=== PATIENT | female | born 1980 | race Caucasian/White ===

== ENCOUNTER 2017-10-08 11:27 | Emergency (ER) | payer SELFPAY ==
[2017-10-08 11:29] VITALS: BP 146/95; PULSE 116; RESP 18; TEMP 36.8; O2SAT 94; BMI 43.4
[2017-10-08 11:35] VITALS: BP 133/96; PULSE 128; RESP 18; O2SAT 97
--- NOTE | 2017-10-08 11:41 | RAD_ITS ---
STUDY: X-RAY CHEST REASON FOR EXAM: Female, 37 years old. Cough. Fever. Chest pain. TECHNIQUE: 2 views COMPARISON: May 19, 2014 FINDINGS: The lungs are clear and expanded. There is no demonstrated pleural abnormality. Normal size heart. Normal mediastinum and negrita. Normal visualized pulmonary arteries. Normal visualized aortic arch and descending thoracic aorta. Normal visualized thoracic spine. Normal visualized ribs, clavicles, and shoulders. There is no demonstrated abnormality of the visualized soft tissue structures of the upper abdomen. RAD/Chest PA and Lateral IMPRESSION: Normal x-ray examination of the chest. No acute findings in the lungs Electronically Signed: Skip Joe, at 12:12 EST Tel , Service support ,
[2017-10-08 11:44] VITALS: O2SAT 97
--- NOTE | 2017-10-08 13:05 | ED.DCSUM_ITS ---
- ER Visit Summary Date of Service: 10/08/17 Chief Complaint: [Cough and shortness of breath] History of Present Illness: The patient is a 37 F [presents to the emergency department with complaint of cough and shortness of breath.] Patient was seen at an urgent care 5 days ago and diagnosed with bronchitis. Patient was started on prednisone and amoxicillin. Patient today had a general scheduled appointment with her primary care physician that was routine and was noted to have a high heart rate so she was sent to the emergency department. Patient denies any chest discomfort. Patient does complain of a cough, headache, and sore throat. Patient states that her legs feel achy. Denies recent travel or surgery. Patient has no history of PE or DVT. Physical Examination: [HEENT-PERRLA, EOMI. Cranial nerves II through XII grossly intact. TMs clear. Mucous membranes moist. No adenopathy. Cardiovascular-regular rate and rhythm without murmur or ectopy Lungs-clear to auscultation, chest wall stable without crepitus or subcu emphysema Abdomen-normoactive bowel sounds, soft, nontender, no rebound or rigidity, no peritoneal signs. Extremities-intact ?4, normal range of motion, normal pulses, atraumatic] Test Results: [Influenza screen was negative and chest x-ray was normal.] Emergency Department Course and Treatment: [Patient to continue with her amoxicillin.] Treatment Plan: [Advised to push fluids and rest. Patient to finish her amoxicillin prescription.] Disposition: [Discharged to home in stable condition. Patient advised to return if increasing shortness of breath or condition should worsen in any way.] Impression: [Bronchitis] This note was generated with [employer] dictation software. It may contain incorrect words, spelling, and punctuation that were not noted in review of the chart prior to signing ED Disposition - Plan for ED Patient: Chief Complaint: Shortness of Breath Referrals: Elizabet Davila MD [Primary Care Provider] -
--- NOTE | 2017-10-08 13:05 | ED.DEP ---
ED Disposition - Plan for ED Patient: Chief Complaint: Shortness of Breath Instructions: ED Upper Resp Infec Abx Tx Referrals: Elizabet Davila MD [Primary Care Provider] - 5-7 Days
[2017-10-08 13:11] VITALS: BP 119/95; PULSE 107; RESP 20; O2SAT 94
--- NOTE | 2017-10-08 13:13 | ED.RN ---
REVIEWED D/C INSTRUCTIONS, FOLLOW UP CARE, AND S/S THAT WOULD WARRANT A RETURN TO THE ED WITH PT. PT VERBALIZED AN UNDERSTANDING AND DENIES FURTHER QUESTIONS FOR THIS RN. PT SKIN P/W/D, RESP EVEN AND UNLABORED, PT A&O X 3, NO DISTRESS NOTED. PT AMBULATED OUT OF ED, GAIT STEADY.
== END 2017-10-08 13:15 | disposition home or self-care (01) ==
PROVIDERS: Emergency Provider Emergency Medicine; Family Provider Internal Medicine; PCP Internal Medicine
DX: J40 Bronchitis, not specified as acute or chronic (principal)
CPT/HCPCS: 71046; 87804; 99282